=== PATIENT | male | born 1995 | race Caucasian/White ===

== ENCOUNTER 2021-12-27 00:53 | Outpatient (REF) | payer OTHER, SELFPAY ==
[2021-12-27 01:23] LABS: COVID-19 Test Negative (Negative); IDNOW Serial# 16C4AD1C; Influenza A Negative (Negative); Influenza B2 Negative (Negative)
== END 2021-12-27 00:54 | disposition home or self-care (01) ==
LOC: HO.LAB 00:53
PROVIDERS: Visit Provider Physician Assistant
DX: Z20.822 Contact with and (suspected) exposure to COVID-19 (principal); R53.81 Other malaise
CPT/HCPCS: 87502; 87635